=== PATIENT | male | born 1985 | race African-American/Black ===

== ENCOUNTER 2024-11-01 09:56 | Outpatient (AMB) | payer OTHER, SELFPAY ==
--- NOTE | 2024-11-01 09:59 | MHC.OFFVIS ---
Vital Signs 11/01/24 10:16 11/01/24 10:18 BP 157/107 H 157/106 H Position Sitting Standing Pulse 59 60 Intake Visit Reasons: 6m f/u Allergies No Known Allergies Allergy (Verified 11/01/24 10:00) Medication List - Last Reconciled 11/01/24 by Dolly Ta CNP cyclobenzaprine 5 mg PO TID PRN hydroxyzine HCl 25 mg PO DAILY PRN levetiracetam ER 500 mg PO DAILY levocetirizine 5 mg PO QPM lisinopril 20 mg PO DAILY omeprazole 20 mg PO DAILY sertraline 100 mg PO DAILY verapamil ER 120 mg PO DAILY 30 days HPI Comments Details: 39-year-old man with left sided chronic paroxymal hemicrania. 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 He reported left sided headaches, around the eye, with watering, lasting from 5-15 minutes at a time, and having 10-15 episodes a day. Headaches were okay with medications. Headaches were not as often or severe. He occasionally missed dose. No medication side effects. Sleep was okay. He gets weird feeling, like a lightheaded dizziness and strange feeling in his stomach, when he lays flat on his back that lasts few seconds and gets better if he turns his head to the side. It has been happening for few years. It can happen when laying down in bed, or even when trying to do bench press at the gym. Review of Systems Const Denies chills, Denies daytime sleepiness, Denies difficulty sleeping, Denies fatigue, Denies fever(s), Denies frequent falls, Denies headache(s), Denies increased appetite, Denies poor appetite, Denies snoring, Denies weakness, Denies weight gain and Denies weight loss Eyes Denies loss of vision ENT Denies vertigo, Denies dizziness and Denies headache(s) Card Denies chest pain at rest, Denies chest pain with activity, Denies syncope, Denies leg edema and Denies palpitations Resp Denies snoring GI Denies constipation, Denies heartburn, Denies diarrhea and Denies nausea Denies urinary frequency, Denies urinary incontinence and Denies urinary urgency Musc Denies abnormal gait, Denies numbness and Denies tingling Skin/Breast Denies dry skin and Denies rash Neuro Denies abnormal gait, Denies vertigo, Denies dizziness, Denies syncope, Denies frequent falls, Denies headache(s), Denies lack of coordination, Denies loss of vision, Denies memory loss, Denies numbness, Denies restless legs, Denies seizure-like activity, Denies tingling, Denies paresthesias, Denies tremor(s) and Denies weakness Psych Denies anxiety, Denies depression, Denies auditory hallucinations, Denies memory loss, Denies visual hallucinations and Denies suicidal ideation Endo Denies fatigue and Denies palpitations Physical Exam Const Other: General Appearance:? normal, in no acute distress. Skin:? no rashes, no significant birthmarks. Heart:? S1, S2 normal, no murmurs. Lungs:? clear anteriorly and posteriorly. Extremities:? no edema. Psych:? alert, oriented, cognitive function intact, cooperative with exam. Neuro Other: Mental Status:?Normal attention, orientation, memory and affect.? Cranial Nerves:?Pupils are equal, round and reactive to light. External occular muscles are intact. Visual melton are full. Face is symmetrical. Facial sensations are normal. Tongue is midline. Palate elevates symmetrically. Shoulder shrugging is normal. Hearing to bedside conversation is normal. Sensory Exam:?....? Coordination:?No ataxia,?no titubation.? Gait Exam: Within normal limits. Extrapyramidal System:?No tremor, rigidity with normal facial expressions.? Pronator Drift:?Not present.? Involuntary Movements:?No tremors seen.? Speech:?Normal.? Results Reviewed Results Reviewed: MRI brain [facility] at [place] in Oct 2023: Scattered FLAIR small lesions (reported) Assessment & Plan Assessment & Plan (1) Chronic paroxysmal hemicrania: Code(s): G44.049 - Chronic paroxysmal hemicrania, not intractable Category: Medical Qualifiers: Intractability: not intractable Qualified Code(s): G44.049 - Chronic paroxysmal hemicrania, not intractable Plan: Continue verapamil ER 120mg 1 tablet daily. Continue levetiracetam ER 500mg 1 tablet daily. (2) Dizziness: Code(s): R42 - Dizziness and giddiness Category: Medical Plan: US carotid duplex ordered. (3) Hypertension: Code(s): I10 - Essential (primary) hypertension Category: Medical Qualifiers: Hypertension type: unspecified Qualified Code(s): I10 - Essential (primary) hypertension Plan: He reports taking medication this morning. He was advised to follow up with PCP for management of hypertension. Orders: Orders US carotid duplex BI Today R42 - Dizziness and giddiness Medications: New levetiracetam ER 500 mg PO DAILY 90 tabs 1RF 90 days Changed From verapamil ER 120 mg PO DAILY 30 days 30 tabs 5RF To verapamil ER 120 mg PO DAILY 90 tabs 1RF 90 days Coding Level of Care Code Est Pt Level 4 (40760) Diagnoses Chronic paroxysmal hemicrania, not intractable G44.049 Intractability: not intractable Dizziness R42 Hypertension, unspecified type I10 Hypertension type: unspecified
[2024-11-01 10:16] VITALS: BP 157/107; PULSE 59
[2024-11-01 10:18] VITALS: BP 157/106; PULSE 60
--- OUTSIDE RECORDS SUMMARY | 2024-11-01 11:57 | XMS_ITS ---
Author Name [facility] Organization Unknown Care Team Organization Name Specialty Phone Email Start Date End Da te [facility] Marco [facility]no [facility] 12/15/2021 09/26/2023
--- OUTSIDE RECORDS SUMMARY | 2024-11-01 11:57 | XMS_ITS | Clinical Summary ---
Author Organization [facility] Address [address] [place] [address] Care Team Providers Care Folder Machine Operator Name Role Phone Marco Moreno MD Primary Care Provider [phone] Allergies No known active allergies Medications Medication Sig Dispensed Refills Start Date End Date Status AMLODIPINE BENZOATE PO Take by mouth. 0 Active Active Problems Problem Noted Date Diagnosed Date Kidney lesion 08/27/2021 Social History Tobacco Use Types Packs/Day Years Used Date Smoking Tobacco: Never Assessed Sex and Gender Information Value Date Recorded Sex Assigned at Not on file Gender Identity Not on file Sexual Orientation Not on file Job Start Date Occupation Industry Not on file Not on file Not on file Last Filed Vital Signs Vital Sign Reading Time Taken Comments Blood Pressure 122/89 09/18/2021 2:54 PM EDT Pulse 72 09/18/2021 2:54 PM EDT Temperature 36.7 C (98.1 F) 09/18/2021 2:54 PM EDT Respiratory Rate - - Oxygen Saturation 94% 09/18/2021 2:54 PM EDT Inhaled Oxygen Concentration - - Weight 71.7 kg (158 lb) 09/18/2021 2:54 PM EDT Height 167.9 cm (5' 6.1 ) 09/18/2021 2:54 PM EDT Body Mass Index 25.42 09/18/2021 2:54 PM EDT Plan of Treatment Health Maintenance Due Date Last Done Comments Hepatitis B Vaccines (1 of 3 - 3-dose series) 1985 Hepatitis C Screening 1985 COVID-19 Vaccine (#1) 1985 Depression Screening 1997 Preventative Health Evaluation 04/18/2003 Influenza Vaccine (#1) 2024 05/01/2020 DTap / Tdap / Td (5 - Td or Tdap) 05/01/2030 05/01/2020, 05/28/1989, 05/10/1987, Additional history exists Pneumococcal Vaccine Aged Out No long er eligible based on patient's age to complete this topic RSV Ped < 20 months Aged Out No longe r eligible based on patient's age to complete this topic Care Teams Folder Machine Operator Relationship Specialty Start Date End Date Marco Moreno MD [address] [place] [address] PCP - General Internal Medicine 08/24/21
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
== END 2024-11-01 10:23 | disposition home or self-care (01) ==
LOC: HO.HSM 09:56
PROVIDERS: PCP Internal Medicine; Referring Provider Internal Medicine; Visit Provider Registered Nurse
DX: G44.049 Chronic paroxysmal hemicrania, not intractable (principal); R42 Dizziness and giddiness; I10 Essential (primary) hypertension
CPT/HCPCS: 99214

== ENCOUNTER → 2024-11-01 09:56 | Outpatient (BNVA) | payer OTHER, SELFPAY | PROVIDERS: PCP Internal Medicine; Referring Provider Internal Medicine; Visit Provider Registered Nurse | DX: G44.049 Chronic paroxysmal hemicrania, not intractable (principal); R42 Dizziness and giddiness; I10 Essential (primary) hypertension; Z79.899 Other long term (current) drug therapy | CPT/HCPCS: 99212 ==

== ENCOUNTER 2025-01-01 15:07 | Outpatient (REF) | payer OTHER, SELFPAY ==
--- NOTE | ~2025-01-01 | US_ITS ---
EXAMINATION: BILATERAL CAROTID ULTRASOUND WITH DOPPLER HISTORY: R42 - Dizziness and giddiness COMPARISON: There are no prior studies available for comparison. TECHNIQUE: Real time and Color and Spectral doppler ultrasonography of the carotid and vertebral arteries was performed in multiple planes. FINDINGS: There is mild plaque in both internal carotid arteries. VERTEBRAL FLOW DIRECTION: Antegrade bilaterally. PEAK SYSTOLIC VELOCITIES (in cm/sec): RIGHT: CCA: Prox: 121 Dist: 97.5 ICA: Prox: 97.5 Mid: 111 Dist: 101 ICA/CCA Ratio: 0.8 ECA: 118 Peak ICA end diastolic velocity (EDV): 57.8 LEFT: CCA: Prox: 138 Dist: 90.1 ICA: Prox: 106 Mid: 84.8 Dist: 99.5 ICA/CCA Ratio: 0.8 ECA: 111 Peak ICA end diastolic velocity (EDV): 49.7 US/US carotid duplex BI IMPRESSION: Findings consistent with 0-49% stenosis of the bilateral internal carotid arteries. Electronically signed by: Maninder Loja MD 01/01/2025 04:00 PM [facility]
--- OUTSIDE RECORDS SUMMARY | 2025-01-01 18:48 | XMS_ITS | Clinical Summary ---
Author Organization [facility] [address] [facility] Building Address [address] [place] [address] Phone Care Team Providers Care Tobacco Prevention Health Educator Name Role Phone Amber Winslow MD Primary Care Provider [phone] Allergies No known active allergies Medications levETIRAcetam XR (KEPPRA XR) 500 mg 24 hr tablet Take 1 tablet (500 mg total) by mouth 1 (one) time each day. 2 Active levocetirizine (XYZAL) 5 mg tablet TAKE [...] NOSTRIL EVERY DAY 16.9 mL 5 Active metroNIDAZOLE (METROCREAM) 0.75 % cream Apply topically 2 (two) times a day. 45 g 1 5 05/08/19 26 Active Active Problems Problem Noted Date Diagnosed [...] cluster headache syndrome 02/16/2021 Panic attacks 08/28/2020 MEALNIE (generalized anxiety disorder) 08/28/2020 Perennial allergic rhinitis 05/26/2020 Conjunctivitis, allergic, bilateral 05/26/2020 Nystagmus 02/01/2019 Overview (12/27/2023): Per [facility] eye care; recommend neuro consult and possible MRI Encounters Date Type Department Care Team Description 11/09/2024 Telephone Internal Medicine [address] [place] [phone] Amber Winslow MD 10/10/2024 2:30 PM EDT Office Visit Internal Medicine - [address] [place] [address] aNncy Payan NP Hypertension, unspecified type (Primary Dx); Gastroesophageal reflux disease without esophagitis; Allergic rhinitis, unspecified seasonality, unspecified trigger from Last 3 Months Immunizations Immunization Administration Dates Next Due DTP 1985 [id number]-[id number]-UJV (Pentacel) 2mo to less than 5yo 05/28/1989,05/10/1987 Hepatitis B (Mfvbqlu-N-Vbiqz , Recombivax HB-Adult) 19yo and older 09/03/1997,04/02/1997,02/26/1997 [...] DX:Migraines Nystagmus 02/01/2019 DX:Nystagmus; CO MMENT: Per [facility] eye care; recommend neuro consult and possible [...] Sign Reading Time Taken Comments Blood Pressure 150/106 11/09/2024 3:00 PM EDT manual in left arm Pulse 106 11/09/2024 2:55 PM EDT Temperature 36.4 C (97.6 F) 09/30/2024 1:11 PM EDT Respiratory Rate - - Oxygen Saturation 98% 09/30/2024 1:1 1 PM EDT Inhaled Oxygen Concentration - - Weight 81.8 kg (180 lb 6.4 oz) 11/09/2024 2:55 PM EDT Height 167.6 cm (5' 6 ) 09/04/2024 1:04 PM EDT Body Mass Index 29.12 09/04/2024 1:04 PM EDT Plan of Treatment Upcoming Encounters Date Type Department Care Team (Late st Contact Info) Description 02/11/2025 2:30 PM EST Office Visit Internal Medicine - [facility] [address] [place] [address] Nancy Payan NP [address] [place] [address] Health Maintenance Due Date Last Done Comments HPV Vaccines (1 - 3-dose SCDM series) 2012 Hepatitis C Screening 01/16/2022 Social Influencers of [...] 04/02/1997, 02/26/1997 HIV Screening Completed 09/04/2024, 09/05/2018 Hepatitis A Vaccines Aged Out No long [...] LTG - 8 visits General No Shanna Collazo PT Note: Patient reports subjective decrease in L shoulder pain Patient is able to achieve 160 degrees of L shoulder flexion Patient is able to achieve 5/5 L shoulder flexion strength Slight trigger point to L biceps/pec Patient is independent and compliant with HEP Procedures Procedure Name Priority Date/Time Associated Diagnosis Comments BASIC METABOLIC PANEL Routine 10/10/2024 2:50 PM EDT Hypertension, unspecified type HIV 1, 2 ANTIBODY, P24 ANTIGEN WITH REFLEX TO DIFFERENTIATION Routine 09/04/2024 1:31 PM EDT Hematuria, unspecified type LIPID PANEL WITH REFLEX TO DIRECT LDL Routine 01/17/2024 1:56 PM EST Hypertension, unspecified type DEPRESSION SCREENING Routine 09/24/2023 from Last 3 Months or Most Recently Relevant to Health Maintenance Results * Basic metabolic panel (10/10/2024 2:50 PM EDT) Sodium 138 133 - 145 mmol/L LAB CHEMISTRY METHOD 10/10/2024 6:24 PM EDT [facility] Potassium 3.6 3.5 - 5.5 mmol/L LAB CHEMISTRY METHOD 10/10/2024 6:24 PM EDT [facility] Chloride 107 96 - 110 mmol/L LAB CHEMISTRY METHOD 10/10/2024 6:24 PM EDT [facility] CO2 27 21 - 32 mmol/L LAB CHEMISTRY METHOD 10/10/2024 6:24 PM EDT [facility] Anion Gap 4 3 - 11 LAB CHEMISTRY METHOD 10/10/2024 6:24 PM EDT [facility] Glucose 73 70 - 100 mg/dL LAB CHEMISTRY METHOD 10/10/2024 6:24 PM EDT [facility] BUN 11 5 - 25 mg/dL LAB CHEMISTRY METHOD 10/10/2024 6:24 PM [facility] Creatinine 1.05 0.70 - 1.30 mg/dL LAB CHEMISTRY METHOD 10/10/2024 6:24 PM EDT [facility] eGFR 93 >=60 mL/min/1. 73m2 LAB CHEMISTRY METHOD 10/10/2024 6:24 PM EDT [facility] Comment:Calculation based on the Chronic Kidney Disease Epidemiology Collaboration (CKD-EPI) equation refit without adjustment for race. BUN/Creatinine Ratio 10.5 LAB CHEMISTRY METHOD 10/10/2024 6:24 PM T [facility] Calcium 9.1 8.5 - 10.5 mg/dL LAB CHEMISTRY METHOD 10/10/2024 6:24 PM T [facility] Blood Venous blood specimen / Unknown Venipuncture / Unknown 10/10/2024 2:50 PM EDT 10/10/2024 2:50 PM EDT us Nancy Payan NP LAB BLOOD ORDERABLES Final Resul t [facility] [address] [place] [address], * HIV 1,2 antibody, p24 antigen with reflex to differentiation (09/04/2024 1:31 PM EDT) HIV Combo AB/AG Negative Negative LAB CHEMISTRY METHOD 09/04/2024 6:51 PM EDT [facility] Blood Venous blood specimen / Unknown Venipuncture / Unknown 09/04/2024 1:31 PM EDT 09/04/2024 1:31 PM EDT Narrative [facility] - 09/04/2024 6:51 PM EDT This assay is a 4th generation assay allowing for earlier detection of HIV infection by detecting the presence of the HIV-1 p24 antigen as well as the traditional antibodies to HIV type 1 (including group O) and type 2. Use of a 4th generation assay is the current CDC recommendation for HIV screening. Doron CLEMENS LAB BLOOD ORDERABLES Fi nal Result [facility] [address] [place] [address], [place] [phone] * (ABNORMAL) Lipid panel with reflex to direct LDL (01/17/2024 1:56 PM EST) Cholesterol 207(H) 0 - 200 mg/dL LAB CHEMISTRY METHOD 01/17/2024 7:30 PM [facility] Triglycerides 171(H) 0 - 150 mg/dL LAB CHEMISTRY METHOD 01/17/2024 7:30 PM [facility] HDL 40 >=40 mg/dL LAB CHEMISTRY METHOD 01/17/2024 7:30 PM [facility] LDL Calculated 133(H) 0 - 100 mg/dL LAB CHEMISTRY METHOD 01/17/2024 7:30 PM [facility] VLDL Cholesterol Kraig 34.2 mg/dL LAB CHEMISTRY METHOD 01/17/2024 7:30 PM [facility] Non HDL Chol. (LDL+VLDL) 167(H) <145 mg/dL LAB CHEMISTRY METHOD 01/17/2024 7:30 PM EST [facility] Chol/HDL Ratio 5.2(H) 0.0 - 4.4 LAB CHEMISTRY METHOD 01/17/2024 7:30 PM EST [facility] Blood Venous blood specimen / Unknown Venipuncture / Unknown 01/17/2024 1:56 PM EST 01/17/2024 1:56 PM EST Marco oMreno MD LAB BLOOD ORDERABLES Leonila l Result [facility] [address] [place] [address], [place] [phone] * Depression Screening (09/24/2023) Depression Screening abstracted us Historical Provider HEALTH MAINTENANCE Final Result from Last 3 Months or Most Recently Relevant to Health Maintenance Insurance [facility] [facility] AUT[employer]IVE [facility] Care Teams Tobacco Prevention Health Educator Relationship Specialty Start Date End Date Amber Winslow MD [address] [place] [address] PCP - General Internal Medicine 10/10/24
--- OUTSIDE RECORDS SUMMARY | 2025-01-01 18:49 | XMS_ITS | Clinical Summary ---
Author Organization [facility] Address [address] [place] [address] Care Team Providers Care Lasting Room Supervisor Name Role Phone Marco Moreno MD Primary Care Provider [phone] Allergies No known active allergies Medications Medication [...] age to complete this topic Care Teams Lasting Room Supervisor Relationship Specialty Start Date End Date Marco Moreno MD [address] [place] [address] PCP - General Internal Medicine 08/24/21
== END 2025-01-01 15:08 | disposition home or self-care (01) ==
LOC: HO.US 15:07
PROVIDERS: Visit Provider Registered Nurse
DX: R42 Dizziness and giddiness (principal)
CPT/HCPCS: 93880

== ENCOUNTER → 2025-01-01 15:13 | Outpatient (BNV) | payer OTHER, SELFPAY | PROVIDERS: Visit Provider Radiology Diagnostic Radiology | DX: R42 Dizziness and giddiness (principal) | CPT/HCPCS: 93880 ==

== ENCOUNTER 2025-02-04 13:39 | Outpatient (AMB) | payer OTHER, SELFPAY ==
--- NOTE | 2025-02-04 13:43 | A.OFFVIS_ITS ---
Intake Visit Reasons: Dizziness Allergies No Known Allergies Allergy (Verified 02/04/25 13:45) Medication List - Last Reconciled 02/04/25 by Dolly Ta CNP cyclobenzaprine 5 mg PO TID PRN hydroxyzine HCl 25 mg PO DAILY PRN levetiracetam ER 500 mg PO DAILY 90 days levocetirizine 5 mg PO QPM lisinopril 20 mg PO DAILY omeprazole 20 mg PO DAILY sertraline 100 mg PO DAILY verapamil ER 120 mg PO DAILY 90 days HPI Comments Details: 39-year-old man with left sided chronic paroxymal hemicrania. 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 He reported left sided headaches, around the eye, with watering, lasting from 5-15 minutes at a time, and having 10-15 episodes a day. Headaches were okay with medications, not as often or severe. He occasionally m issed dose. No medication side effects. Sleep was okay. He was still getting lightheaded dizziness-type feeling when he lays flat on his back that lasts few seconds up to few minutes and gets better if he turns his head to the side. It has been happening for few years, since around 2013. It can happen when laying down in bed, or even when trying to do bench press at the gym. It does not happen when he is upright. No history of head trauma. Review of Systems Const Denies chills, Denies daytime sleepiness, Denies difficulty sleeping, Denies fatigue, Denies fever(s), Denies frequent falls, Denies headache(s), Denies increased appetite, Denies poor appetite, Denies snoring, Denies weakness, Denies weight gain and Denies weight loss Eyes Denies loss of vision ENT Denies vertigo, Denies dizziness and Denies headache(s) Card Denies chest pain at rest, Denies chest pain with activity, Denies syncope, Denies leg edema and Denies palpitations Resp Denies snoring GI Denies constipation, Denies heartburn, Denies diarrhea and Denies nausea Denies urinary frequency, Denies urinary incontinence and Denies urinary urgency Musc Denies abnormal gait, Denies numbness and Denies tingling Skin/Breast Denies dry skin and Denies rash Neuro Denies abnormal gait, Denies vertigo, Denies dizziness, Denies syncope, Denies frequent falls, Denies headache(s), Denies lack of coordination, Denies loss of vision, Denies memory loss, Denies numbness, Denies restless legs, Denies seizure-like activity, Denies tingling, Denies paresthesias, Denies tremor(s) and Denies weakness Psych Denies anxiety, Denies depression, Denies auditory hallucinations, Denies memory loss, Denies visual hallucinations and Denies suicidal ideation Endo Denies fatigue and Denies palpitations Physical Exam Const Other: General Appearance:? normal, in no acute distress. Skin:? no rashes, no significant birthmarks. Heart:? S1, S2 normal, no murmurs. Lungs:? clear anteriorly and posteriorly. Extremities:? no edema. Psych:? alert, oriented, cognitive function intact, cooperative with exam. Neuro Other: Mental Status:?Normal attention, orientation, memory and affect.? Cranial Nerves:?Pupils are equal, round and reactive to light. External occular muscles are intact. Visual melton are full. Face is symmetrical. Facial sensations are normal. Tongue is midline. Palate elevates symmetrically. Shoulder shrugging is normal. Hearing to bedside conversation is normal. Sensory Exam:?....? Coordination:?No ataxia,?no titubation.? Gait Exam: Within normal limits. Extrapyramidal System:?No tremor, rigidity with normal facial expressions.? Pronator Drift:?Not present.? Involuntary Movements:?No tremors seen.? Speech:?Normal.? Results Reviewed Results Reviewed: [address] [address] Ultrasound Report Signed Patient: Haile Davila MR#: [id number] : 1985 Acct:[id number] Age/Sex: 39 / M ADM Date: 01/01/25 Loc: HO.US Attending Dr: Dolly Ta CNP Ordering Physician: Dolly Ta CNP Date of Service: 01/01/25 Procedure(s): US carotid duplex BI Accession Number(s): [id number] cc: Physician,Unknown ; Dolly Ta CNP~ Reason for Exam: R42 - Dizziness and giddiness EXAMINATION: BILATERAL CAROTID ULTRASOUND WITH DOPPLER HISTORY: R42 - Dizziness and giddiness COMPARISON: There are no prior studies available for comparison. TECHNIQUE: Real time and Color and Spectral doppler ultrasonography of the carotid and vertebral arteries was performed in multiple planes. FINDINGS: There is mild plaque in both internal carotid arteries. VERTEBRAL FLOW DIRECTION: Antegrade bilaterally. PEAK SYSTOLIC VELOCITIES (in cm/sec): RIGHT: CCA: Prox: 121 Dist: 97.5 ICA: Prox: 97.5 Mid: 111 Dist: 101 ICA/CCA Ratio: 0.8 ECA: 118 Peak ICA end diastolic velocity (EDV): 57.8 LEFT: CCA: Prox: 138 Dist: 90.1 ICA: Prox: 106 Mid: 84.8 Dist: 99.5 ICA/CCA Ratio: 0.8 ECA: 111 Peak ICA end diastolic velocity (EDV): 49.7 US/US carotid duplex BI IMPRESSION: Findings consistent with 0-49% stenosis of the bilateral internal carotid arteries. Electronically signed by: Maninder Loja MD 01/01/2025 04:00 PM [facility] Dictated By: Maninder Loja MD Signed By: <Electronically signed by Maninder Loja MD in OV> 01/01/25 1600 Assessment & Plan Assessment & Plan (1) Chronic paroxysmal hemicrania: Code(s): G44.049 - Chronic paroxysmal hemicrania, not intractable Category: Medical Qualifiers: Intractability: not intractable Qualified Code(s): G44.049 - Chronic paroxysmal hemicrania, not intractable Plan: Continue verapamil ER 120mg 1 tablet daily. Continue levetiracetam ER 500mg 1 tablet daily. (2) Dizziness: Code(s): R42 - Dizziness and giddiness Category: Medical Plan: US carotid duplex results reviewed. Start meclizine 25mg 1 tablet twice a day as needed for dizziness #60 for 30 days, use/side effects reviewed. Recommend trying 1 tablet at bedtime x2 weeks. Follow up in 3 months or sooner as needed. Medications: New meclizine 25 mg PO BID PRN 60 tabs 2RF dizziness 30 days Refilled levetiracetam ER 500 mg PO DAILY 90 tabs 1RF 90 days verapamil ER 120 mg PO DAILY 90 tabs 1RF 90 days Coding Level of Care Code Est Pt Level 4 (27796) Diagnoses Chronic paroxysmal hemicrania, not intractable G44.049 Intractability: not intractable Dizziness R42
--- OUTSIDE RECORDS SUMMARY | 2025-02-04 15:49 | XMS_ITS | Clinical Summary ---
Author Organization [facility] Prior to 07/07/24 Address [address] [place] [address] Care Team Providers Care Greens Cutter Name Role Phone Marco Moreno MD Primary Care Provider [phone] Allergies No known active allergies Medications Medication [...] age to complete this topic Care Teams Greens Cutter Relationship Specialty Start Date End Date Marco Moreno MD [address] [place] [address] PCP - General Internal Medicine 08/24/21
--- OUTSIDE RECORDS SUMMARY | 2025-02-04 15:49 | XMS_ITS ---
Author Organization [address] Address [address] [place] [address] Phone Care Team Providers Care Collections Rep Name Role Phone Amber Winslow MD Primary Care Provider [phone] Community Health Worker Program Status:Identified (Enrolling) Start date:01/25/2025 Enrollment reason:Hypertension management Overview Community Health Worker Program Case Team Name Relationship Phone Joellen Santiago(Responsible Staff) Community Hea lth Worker Continued Care and Services Coordination
--- OUTSIDE RECORDS SUMMARY | 2025-02-04 15:49 | XMS_ITS | Clinical Summary ---
Author Organization [facility] [address] [facility] Building Address [address] [place] [address] Phone Care Team Providers Care Lock Fitter Name Role Phone Amber Winslow MD Primary Care Provider [phone] Allergies No known active allergies Medications levETIRAcetam [...] bilateral 05/26/2020 Nystagmus 02/01/2019 Overview (12/27/2023): Per [facility]; recommend neuro consult and possible MRI Encounters Date Type Department Care Team Description 11/09/2024 Telephone Internal Medicine - [facility] [address] [facility] [place] [address] Amber Winslow MD from Last 3 Months Immunizations Immunization Administration Dates Next Due DTP 1985 [id number] (Pentacel) 2mo to less than 5yo 05/28/1989,05/10/1987 Hepatitis B (Lvbfani-I-Gmnae , Recombivax HB-Adult) 19yo and older 09/03/1997,04/02/1997,02/26/1997 [...] DX:Migraines Nystagmus 02/01/2019 DX:Nystagmus; CO MMENT: Per [facility]; recommend neuro consult and possible [...] on file Sexual Orientation Not on file Last Filed Vital Signs [...] Encounters Date Type Department Care Team (Late Contact Info) Description 02/12/2025 2:30 PM EST Office Visit Internal Medicine - [facility] [address] [place] [address] Nancy Payan, MICHELLE [address] [place] [address] Health Maintenance Due Date Last Done Comments [...] - 8 visits General No Shanna Collazo, DEANNA Note: Patient reports subjective decrease in L [...] LAB CHEMISTRY METHOD 10/10/2024 6:24 PM EDT [facility] Potassium 3.6 3.5 - 5.5 mmol/L LAB CHEMISTRY METHOD 10/10/2024 6:24 PM EDT [facility] Chloride 107 96 - 110 mmol/L LAB CHEMISTRY METHOD 10/10/2024 6:24 PM EDT [facility] CO2 27 21 - 32 mmol/L LAB CHEMISTRY METHOD 10/10/2024 6:24 PM EDT [facility] Anion Gap 4 3 - 11 LAB CHEMISTRY METHOD 10/10/2024 6:24 PM EDT [facility] Glucose 73 70 - 100 mg/dL LAB CHEMISTRY METHOD 10/10/2024 6:24 PM EDT [facility] BUN 11 5 - 25 mg/dL LAB CHEMISTRY METHOD 10/10/2024 6:24 PM EDT [facility] Creatinine 1.05 0.70 - 1.30 mg/dL LAB CHEMISTRY METHOD 10/10/2024 6:24 PM EDT [facility] eGFR 93 >=60 mL/min/1. 73m2 LAB CHEMISTRY METHOD 10/10/2024 6:24 PM EDT [facility] Comment:Calculation based on the Chronic Kidney Disease Epidemiology Collaboration (CKD-EPI) equation refit without adjustment for race. BUN/Creatinine Ratio 10.5 LAB CHEMISTRY METHOD 10/10/2024 6:24 PM EDT [facility] Calcium 9.1 8.5 - 10.5 mg/dL LAB CHEMISTRY METHOD 10/10/2024 6:24 PM EDT [facility] Blood Venous blood specimen / Unknown Venipuncture / Unknown 10/10/2024 2:50 PM EDT 10/10/2024 2:50 PM EDT us Nancy Payan NP LAB BLOOD ORDERABLES Final Resul t [facility] [address] [place] [address], * HIV 1,2 antibody, p24 antigen with reflex to differentiation (09/04/2024 1:31 PM EDT) HIV Combo AB/AG Negative Negative LAB CHEMISTRY METHOD 09/04/2024 6:51 PM EDT [facility] Blood Venous blood specimen / Unknown Venipuncture / Unknown 09/04/2024 1:31 PM EDT 09/04/2024 1:31 PM EDT Narrative [facility] - 09/04/2024 6:51 PM EDT [...] CLEMENS LAB BLOOD ORDERABLES Fi nal Result [facility] [address] [place] [address], [place] [phone] * (ABNORMAL) Lipid panel with reflex to direct LDL (01/17/2024 1:56 PM EST) Cholesterol 207(H) 0 - 200 mg/dL LAB CHEMISTRY METHOD 01/17/2024 7:30 PM EST [facility] Triglycerides 171(H) 0 - 150 mg/dL LAB CHEMISTRY METHOD 01/17/2024 7:30 PM EST [facility] HDL 40 >=40 mg/dL LAB CHEMISTRY METHOD 01/17/2024 7:30 PM EST [facility] LDL Calculated 133(H) 0 - 100 mg/dL LAB CHEMISTRY METHOD 01/17/2024 7:30 PM EST [facility] VLDL Cholesterol Kraig 34.2 mg/dL LAB CHEMISTRY METHOD 01/17/2024 7:30 PM EST [facility] Non HDL Chol. (LDL+VLDL) 167(H) <145 mg/dL LAB CHEMISTRY METHOD 01/17/2024 7:30 PM EST [facility] Chol/HDL Ratio 5.2(H) 0.0 - 4.4 LAB CHEMISTRY METHOD 01/17/2024 7:30 PM [facility] Blood Venous blood specimen / Unknown Venipuncture / Unknown 01/17/2024 1:56 PM EST 01/17/2024 1:56 PM EST Marco Moreno MD LAB BLOOD ORDERABLES Leonila l Result [facility] [address] [place] [address], * Depression Screening (09/24/2023) [facility] Depression Screening abstracted Historical Provider HEALTH MAINTENANCE Final Result from Last 3 Months or Most Recently Relevant to Health Maintenance Insurance [employer] Care Teams Lock Fitter Relationship Specialty Start Date End Date Amber Winslow MD [address] [facility] [place] [id number] PCP - General Internal Medicine 10/10/24
== END 2025-02-04 13:56 | disposition home or self-care (01) ==
LOC: HO.HSM 13:39
PROVIDERS: PCP Internal Medicine; Visit Provider Registered Nurse
DX: G44.049 Chronic paroxysmal hemicrania, not intractable (principal); R42 Dizziness and giddiness
CPT/HCPCS: 99214

== ENCOUNTER → 2025-02-04 13:39 | Outpatient (BNVA) | payer OTHER, SELFPAY | PROVIDERS: PCP Internal Medicine; Visit Provider Registered Nurse | DX: G44.049 Chronic paroxysmal hemicrania, not intractable (principal); R42 Dizziness and giddiness; Z79.899 Other long term (current) drug therapy | CPT/HCPCS: 99212 ==